=== PATIENT | male | born 1990 | race Caucasian/White ===

== ENCOUNTER 2019-02-21 14:51 | Emergency (ER) | payer SELFPAY ==
[~2019-02-21] VITALS: Ht 177.8 cm; Wt 98.0 kg
[~2019-02-21 14:51] MED LIST: IBUP-1542 PO; ONDA4TAB8 PO
[2019-02-21 15:19] VITALS: Ht 177.8 cm; Wt 98.0 kg
[2019-02-21] MEDS ORDERED: KETOROLAC 30 MG INJ IM STA (19:02)
[2019-02-21] MEDS ORDERED: ONDANSETRON (ODT) 4 MG TAB ODT STA (19:02)
[2019-02-21] MEDS ORDERED: OXYCODONE/ACETAMINOPHEN (5/325) TAB PO ONE (19:30)
[2019-02-21 20:10] VITALS: BP 148/92; PULSE 81; RESP 20
== END 2019-02-21 20:10 | disposition home or self-care (01) ==
LOC: E/R 14:51
DX: F11.23 Opioid dependence with withdrawal (principal)
CPT/HCPCS: 96372; 99284; J1885